=== PATIENT | female | born 1975 | race Caucasian/White ===

== ENCOUNTER 2017-02-14 00:24 | Inpatient (IN) | payer BC ==
[~2017-02-14 00:24] MED LIST: ALLEGRA ALLERG180 M1 PO; CENTRUM COMPLE1 EAC1 PO; ESTRADIOL1 EA12 TD; IBUPROFEN800 M1 PO; LASIX20 M1 PO; MEDS; MELATONIN10 M6 PO; MORPHINE SULFAT3010 PO; MS CONTIN15 M1 PO; NEURONTIN300 M1 PO; POTASSIUM CHLO20 ME3 PO; PROMETHAZINE12.5 M2 PO; REQUIP0.25 M1 PO; SEROQUEL25 M2 PO; XANAX1 M1 PO; ZANAFLEX4 M3 PO; ZOFRAN4 M2 PO; ZOFRAN8 M1 PO; ZOLOFT100 M1 PO
[2017-02-14 02:00] LABS: HCT-HEMATOCRIT 36.3 % (34.0-49.0); HGB-HEMOGLOBIN 11.9 gm/dl (12.0-15.5); IMMATURE GRANULOCYTES ABSOLUTE 0.01 tho/cmm (0-0.03); IMMATURE GRANULOCYTES PERCENT 0.4 % (0-0.3); LYMPH % 25.7 % (20-45); LYMPH ABSOLUTE COUNT 0.7 tho/cmm (0.8-4.5); MCH (MEAN CORPUSCULAR HGB) 26.7 pg (28.0-32.0); MCHC MEAN CORPUSCULAR HGB CONC 32.8 % (32.0-36.0); MCV (MEAN CELL VOLUME) 81.6 fl (82.0-96.0); MEAN PLATELET VOLUME 9.8 cmc (9.4-12.4); MONO % 9.1 % (0-12); MONOCYTE ABSOLUTE COUNT 0.3 tho/cmm (0.0-1.2); NEUTROPHIL ABSOLUTE COUNT 1.8 tho/cmm (1.6-8.0); NEUTROPHIL-AUTOMATED 1.8 tho/cmm (1.6-8.0); NEUTROPHILS % 64.8 % (40-80); PLATELET COUNT 137 tho/cmm (150-450); RED BLOOD COUNT 4.45 mil/cmm (4.00-5.20); RED CELL DISTRIBUTION WIDTH 16.4 % (12.4-16.4); WHITE BLOOD COUNT 2.8 tho/cmm (4.0-10.0)
[2017-02-14 02:23] LABS: ALB/GLOB RATIO 0.7 (0.8-2.0); ALBUMIN 2.5 g/dl (3.5-5.0); ALKALINE PHOSPHATASE 157 U/L (33-138); ALT/SGPT 40 U/L (12-78); AMYLASE 47 U/L (20-90); ANION GAP 12 mmol/L (0-20); AST/SGOT 20 U/L (10-40); BILIRUBIN,TOTAL 0.3 mg/dl (0-1.5); BLOOD UREA NITROGEN 9 mg/dl (6-24); CALCIUM 7.8 mg/dl (8.5-10.5); CARBON DIOXIDE-VENOUS 20 mmol/L (22-32); CHLORIDE 115 mmol/l (96-110); CREATININE 0.78 mg/dl (0.50-1.10); GLUCOSE 102 mg/dL (70-110); LIPASE 187 U/L (73-393); POTASSIUM 3.2 mmol/L (3.7-5.1); SODIUM 144 mmol/L (135-145); eGFR VALUE FOR BLACK >90 mL/Min
[2017-02-14] MEDS ORDERED: ZANAFLEX4 M2 PO (02:57)
[2017-02-14] MEDS ORDERED: NEURONTIN600 M1 PO (02:57)
[2017-02-14] MEDS ORDERED: MS CONTIN30 M1 PO (02:58)
[2017-02-14] MEDS ORDERED: XANAX1 M1 PO (03:00)
[2017-02-14] MEDS ORDERED: ZOLOFT100 M1 PO (03:02)
[2017-02-14] MEDS ORDERED: POTASSIUM CHLO20 ME3 PO (03:02)
[2017-02-14] MEDS ORDERED: ROPINIROLE HCL0.5 M1 PO (03:03)
[2017-02-14] MEDS ORDERED: PROMETHAZINE12.5 M2 PO (03:04)
[2017-02-14] MEDS ORDERED: LUNESTA2 M1 PO (03:05)
[2017-02-14] MEDS ORDERED: OMEPRAZOLE10 M2 PO (03:06)
[2017-02-14] MEDS ORDERED: LASIX20 M1 PO (03:20)
[2017-02-14] MEDS ORDERED: XYZAL5 M1 PO (03:21)
[2017-02-14] MEDS ORDERED: MORPHINE SU15 MG/TAB PO (03:27)
[2017-02-14 08:38] LABS: PROCALCITONIN 0.07 ng/ml (0.05-0.09)
[2017-02-14] MEDS ORDERED: MS CONTIN15 M1 PO (15:07)
[2017-02-14] MEDS ORDERED: IBUPROFEN200 M2 PO (15:11)
[2017-02-14] MEDS ORDERED: MUCINEX FAST-M1 EAC9 PO (15:11)
[2017-02-14] MEDS ORDERED: CALCIUM500 M4 PO (15:12)
[2017-02-14] MEDS ORDERED: VENTOLIN HFA18 G2 INH (15:13)
[2017-02-14] MEDS ORDERED: WOMEN'S MULTI200 MCG PO (15:13)
[2017-02-15 05:35] LABS: HCT-HEMATOCRIT 31.9 % (34.0-49.0); HGB-HEMOGLOBIN 10.5 gm/dl (12.0-15.5); LYMPH % 24.9 % (20-45); LYMPH ABSOLUTE COUNT 0.7 tho/cmm (0.8-4.5); MCH (MEAN CORPUSCULAR HGB) 26.7 pg (28.0-32.0); MCHC MEAN CORPUSCULAR HGB CONC 32.9 % (32.0-36.0); MCV (MEAN CELL VOLUME) 81.2 fl (82.0-96.0); MEAN PLATELET VOLUME 10.3 cmc (9.4-12.4); MONO % 7.8 % (0-12); MONOCYTE ABSOLUTE COUNT 0.2 tho/cmm (0.0-1.2); NEUTROPHILS % 67.3 % (40-80); PLATELET COUNT 122 tho/cmm (150-450); RED BLOOD COUNT 3.93 mil/cmm (4.00-5.20); RED CELL DISTRIBUTION WIDTH 16.6 % (12.4-16.4); WHITE BLOOD COUNT 2.9 tho/cmm (4.0-10.0)
[2017-02-15 05:44] LABS: ALB/GLOB RATIO 0.7 (0.8-2.0); ALBUMIN 2.5 g/dl (3.5-5.0); ALKALINE PHOSPHATASE 119 U/L (33-138); ALT/SGPT 26 U/L (12-78); AST/SGOT 15 U/L (10-40); BLOOD UREA NITROGEN 4 mg/dl (6-24); CALCIUM 7.9 mg/dl (8.5-10.5); CARBON DIOXIDE-VENOUS 19 mmol/L (22-32); CHLORIDE 114 mmol/l (96-110); CREATININE 0.81 mg/dl (0.50-1.10); GLUCOSE 106 mg/dL (70-110); MAGNESIUM 1.8 mg/dl (1.8-2.6); SODIUM 144 mmol/L (135-145); eGFR VALUE FOR BLACK >90 mL/Min
[2017-02-15 05:47] LABS: ANION GAP 14 mmol/L (0-20); BILIRUBIN,TOTAL 0.6 mg/dl (0-1.5)
[2017-02-15 05:49] LABS: POTASSIUM 2.8 mmol/L (3.7-5.1)
[2017-02-15 15:51] LABS: URINE BILIRUBIN NEGATIVE (NEG); URINE BLOOD NEGATIVE (NEG); URINE GLUCOSE (UA) NEGATIVE (NEG); URINE KETONE NEGATIVE (NEG); URINE LEUKOCYTE ESTERASE NEGATIVE (NEG); URINE NITRITE NEGATIVE (NEG); URINE PROTEIN MODERATE (NEG)
[2017-02-15 15:52] LABS: URINE APPEARANCE CLEAR; URINE COLOR YELLOW
[2017-02-15 15:58] LABS: URINE EPITHELIAL CELLS 0-1 /[HPF] (0-10); URINE RBC 0-3 /[HPF] (0-5); URINE WBC 0-1 /[HPF] (0-5)
[2017-02-16 06:20] LABS: HCT-HEMATOCRIT 30.3 % (34.0-49.0); HGB-HEMOGLOBIN 9.6 gm/dl (12.0-15.5); IMMATURE GRANULOCYTES ABSOLUTE 0.01 tho/cmm (0-0.03); IMMATURE GRANULOCYTES PERCENT 0.3 % (0-0.3); LYMPH % 25.9 % (20-45); LYMPH ABSOLUTE COUNT 0.8 tho/cmm (0.8-4.5); MCH (MEAN CORPUSCULAR HGB) 26.2 pg (28.0-32.0); MCHC MEAN CORPUSCULAR HGB CONC 31.7 % (32.0-36.0); MCV (MEAN CELL VOLUME) 82.6 fl (82.0-96.0); MEAN PLATELET VOLUME 9.7 cmc (9.4-12.4); MONO % 6.1 % (0-12); MONOCYTE ABSOLUTE COUNT 0.2 tho/cmm (0.0-1.2); NEUTROPHILS % 66.7 % (40-80); PLATELET COUNT 125 tho/cmm (150-450); RED BLOOD COUNT 3.67 mil/cmm (4.00-5.20); RED CELL DISTRIBUTION WIDTH 16.9 % (12.4-16.4)
[2017-02-16 06:27] LABS: ALB/GLOB RATIO 0.7 (0.8-2.0); ALBUMIN 2.6 g/dl (3.5-5.0); ALKALINE PHOSPHATASE 117 U/L (33-138); ALT/SGPT 27 U/L (12-78); ANION GAP 12 mmol/L (0-20); AST/SGOT 8 U/L (10-40); BILIRUBIN,TOTAL 0.3 mg/dl (0-1.5); BLOOD UREA NITROGEN 6 mg/dl (6-24); CALCIUM 8.2 mg/dl (8.5-10.5); CARBON DIOXIDE-VENOUS 19 mmol/L (22-32); CHLORIDE 118 mmol/l (96-110); CREATININE 0.74 mg/dl (0.50-1.10); FERRITIN 180 ng/ml (8-250); GLUCOSE 124 mg/dL (70-110); POTASSIUM 3.4 mmol/L (3.7-5.1); SODIUM 146 mmol/L (135-145); eGFR VALUE FOR BLACK >90 mL/Min
[2017-02-17 06:06] LABS: EOS % 3.2 % (0-7); EOSINOPHIL ABSOLUTE COUNT 0.1 tho/cmm (0.0-0.7); HCT-HEMATOCRIT 31.9 % (34.0-49.0); HGB-HEMOGLOBIN 10.1 gm/dl (12.0-15.5); LYMPH % 22.7 % (20-45); LYMPH ABSOLUTE COUNT 0.8 tho/cmm (0.8-4.5); MCH (MEAN CORPUSCULAR HGB) 26.4 pg (28.0-32.0); MCHC MEAN CORPUSCULAR HGB CONC 31.7 % (32.0-36.0); MCV (MEAN CELL VOLUME) 83.3 fl (82.0-96.0); MEAN PLATELET VOLUME 9.6 cmc (9.4-12.4); MONO % 5.3 % (0-12); MONOCYTE ABSOLUTE COUNT 0.2 tho/cmm (0.0-1.2); NEUTROPHIL ABSOLUTE COUNT 2.3 tho/cmm (1.6-8.0); NEUTROPHIL-AUTOMATED 2.3 tho/cmm (1.6-8.0); NEUTROPHILS % 68.8 % (40-80); PLATELET COUNT 137 tho/cmm (150-450); RED BLOOD COUNT 3.83 mil/cmm (4.00-5.20); RED CELL DISTRIBUTION WIDTH 17.3 % (12.4-16.4); WHITE BLOOD COUNT 3.4 tho/cmm (4.0-10.0)
[2017-02-17 06:22] LABS: ALB/GLOB RATIO 0.7 (0.8-2.0); ALBUMIN 2.6 g/dl (3.5-5.0); ALKALINE PHOSPHATASE 118 U/L (33-138); ALT/SGPT 22 U/L (12-78); ANION GAP 13 mmol/L (0-20); AST/SGOT 11 U/L (10-40); BILIRUBIN,TOTAL 0.4 mg/dl (0-1.5); BLOOD UREA NITROGEN 5 mg/dl (6-24); CALCIUM 8.5 mg/dl (8.5-10.5); CARBON DIOXIDE-VENOUS 22 mmol/L (22-32); CHLORIDE 116 mmol/l (96-110); CREATININE 0.88 mg/dl (0.50-1.10); GLUCOSE 79 mg/dL (70-110); SODIUM 146 mmol/L (135-145); eGFR VALUE FOR BLACK >90 mL/Min
[2017-02-17 06:24] LABS: POTASSIUM 4.7 mmol/L (3.7-5.1)
[2017-02-17 07:21] LABS: ESR-ERYTHROCYTE SED RATE 95 mm/hr (0-20)
[2017-02-17 12:24] LABS: BAL APPEARANCE HAZY (CLEAR)
[2017-02-17 12:25] LABS: BAL COLOR STRAW (COLORLESS)
[2017-02-17 14:07] LABS: BAL LYMPHOCYTES 3 %; BAL NEUTROPHILS 40 %
[2017-02-18 06:12] LABS: HCT-HEMATOCRIT 33.2 % (34.0-49.0); HGB-HEMOGLOBIN 10.8 gm/dl (12.0-15.5); IMMATURE GRANULOCYTES ABSOLUTE 0.01 tho/cmm (0-0.03); IMMATURE GRANULOCYTES PERCENT 0.3 % (0-0.3); LYMPH % 14.1 % (20-45); LYMPH ABSOLUTE COUNT 0.4 tho/cmm (0.8-4.5); MCH (MEAN CORPUSCULAR HGB) 26.3 pg (28.0-32.0); MCHC MEAN CORPUSCULAR HGB CONC 32.5 % (32.0-36.0); MCV (MEAN CELL VOLUME) 80.8 fl (82.0-96.0); MEAN PLATELET VOLUME 9.2 cmc (9.4-12.4); MONO % 2.9 % (0-12); MONOCYTE ABSOLUTE COUNT 0.1 tho/cmm (0.0-1.2); NEUTROPHIL ABSOLUTE COUNT 2.6 tho/cmm (1.6-8.0); NEUTROPHIL-AUTOMATED 2.6 tho/cmm (1.6-8.0); NEUTROPHILS % 82.7 % (40-80); PLATELET COUNT 162 tho/cmm (150-450); RED BLOOD COUNT 4.11 mil/cmm (4.00-5.20); RED CELL DISTRIBUTION WIDTH 16.7 % (12.4-16.4); WHITE BLOOD COUNT 3.1 tho/cmm (4.0-10.0)
[2017-02-18 06:28] LABS: BLOOD UREA NITROGEN 10 mg/dl (6-24); CALCIUM 8.7 mg/dl (8.5-10.5); CARBON DIOXIDE-VENOUS 22 mmol/L (22-32); CHLORIDE 110 mmol/l (96-110); CREATININE 0.71 mg/dl (0.50-1.10); SODIUM 141 mmol/L (135-145); eGFR VALUE FOR BLACK >90 mL/Min
[2017-02-18 06:33] LABS: ANION GAP 13 mmol/L (0-20); GLUCOSE 163 mg/dL (70-110); POTASSIUM 3.7 mmol/L (3.7-5.1)
[2017-02-19 05:17] LABS: HCT-HEMATOCRIT 33.4 % (34.0-49.0); HGB-HEMOGLOBIN 10.7 gm/dl (12.0-15.5); IMMATURE GRANULOCYTES ABSOLUTE 0.01 tho/cmm (0-0.03); IMMATURE GRANULOCYTES PERCENT 0.2 % (0-0.3); LYMPH % 9.1 % (20-45); LYMPH ABSOLUTE COUNT 0.4 tho/cmm (0.8-4.5); MCH (MEAN CORPUSCULAR HGB) 26.3 pg (28.0-32.0); MCV (MEAN CELL VOLUME) 82.1 fl (82.0-96.0); MEAN PLATELET VOLUME 9.5 cmc (9.4-12.4); MONO % 1.6 % (0-12); MONOCYTE ABSOLUTE COUNT 0.1 tho/cmm (0.0-1.2); NEUTROPHIL ABSOLUTE COUNT 3.8 tho/cmm (1.6-8.0); NEUTROPHIL-AUTOMATED 3.8 tho/cmm (1.6-8.0); NEUTROPHILS % 89.1 % (40-80); PLATELET COUNT 173 tho/cmm (150-450); RED BLOOD COUNT 4.07 mil/cmm (4.00-5.20); RED CELL DISTRIBUTION WIDTH 16.8 % (12.4-16.4); WHITE BLOOD COUNT 4.3 tho/cmm (4.0-10.0)
[2017-02-19 05:36] LABS: ALB/GLOB RATIO 0.7 (0.8-2.0); ALBUMIN 2.9 g/dl (3.5-5.0); ALKALINE PHOSPHATASE 114 U/L (33-138); ALT/SGPT 20 U/L (12-78); ANION GAP 14 mmol/L (0-20); AST/SGOT 9 U/L (10-40); BILIRUBIN,TOTAL 0.2 mg/dl (0-1.5); BLOOD UREA NITROGEN 13 mg/dl (6-24); CARBON DIOXIDE-VENOUS 27 mmol/L (22-32); CHLORIDE 107 mmol/l (96-110); CREATININE 0.92 mg/dl (0.50-1.10); GLUCOSE 143 mg/dL (70-110); SODIUM 144 mmol/L (135-145); eGFR VALUE FOR BLACK 90 mL/Min
[2017-02-20] MEDS ORDERED: IPRATROPIU0.2 MG/1 M INH (12:35)
[2017-02-20] MEDS ORDERED: MAALOX MAXIMUM355 M1 PO (12:36)
[2017-02-20] MEDS ORDERED: BISCOLAX10 MG PR (12:37)
[2017-02-20] MEDS ORDERED: MILK OF MAGNESIA PO (12:37)
[2017-02-20] MEDS ORDERED: CEFTIN250 MG/51 PO (12:38)
[2017-02-20] MEDS ORDERED: DELTASONE20 MG PO (12:39)
[2017-02-20] MEDS ORDERED: SYMBICORT 160-1 PUFF INH (12:40)
[2017-05-27] MEDS ORDERED: XANAX1 M1 PO (18:12)
[2017-05-27] MEDS ORDERED: ZITHROMAX500 M2 PO (18:12)
[2017-05-27] MEDS ORDERED: RIFADIN300 M1 PO (18:13)
[2017-05-27] MEDS ORDERED: MYAMBUTOL400 M2 PO (18:13)
[2017-05-30] MEDS ORDERED: XIFAXAN550 M1 PO (14:05)
[2017-05-30] MEDS ORDERED: [UNRECOGNIZED DRUG - REMARK] (14:15)
[2017-06-11] MEDS ORDERED: CYMBALTA30 M1 PO (13:39)
[2017-06-11] MEDS ORDERED: TRULANCE3 MG PO (13:40)
[2017-06-11] MEDS ORDERED: MORPHINE SU15 MG/TAB PO (13:50)
== END 2017-02-20 13:20 | DRG 853 ==
LOC: PCUB 00:24
PROVIDERS: Internal Medicine; Internal Medicine Critical Care Medicine; Registered Nurse; ADMIT Hospitalist
PROC: 3E0F7GC Introduction of Other Therapeutic Substance into Respiratory Tract, Via Natural or Artificial Opening (ICD-10-PCS; 2017-02-14)
PROC: 05HC33Z Insertion of Infusion Device into Left Basilic Vein, Percutaneous Approach (ICD-10-PCS; principal; 2017-02-15)
PROC: B54NZZA Ultrasonography of Left Upper Extremity Veins, Guidance (ICD-10-PCS; principal; 2017-02-15)
PROC: 0BBC8ZX Excision of Right Upper Lung Lobe, Via Natural or Artificial Opening Endoscopic, Diagnostic (ICD-10-PCS; 2017-02-17)
PROC: 0BB68ZX Excision of Right Lower Lobe Bronchus, Via Natural or Artificial Opening Endoscopic, Diagnostic (ICD-10-PCS; 2017-02-17)
PROC: 0B9F8ZX Drainage of Right Lower Lung Lobe, Via Natural or Artificial Opening Endoscopic, Diagnostic (ICD-10-PCS; 2017-02-17)
PROC: 0BB18ZX Excision of Trachea, Via Natural or Artificial Opening Endoscopic, Diagnostic (ICD-10-PCS; 2017-02-17)
DX: A41.9 Sepsis, unspecified organism (principal); J96.21 Acute and chronic respiratory failure with hypoxia; D61.818 Other pancytopenia; J84.9 Interstitial pulmonary disease, unspecified; I27.2 Other secondary pulmonary hypertension; I95.9 Hypotension, unspecified; K56.7 Ileus, unspecified; E87.6 Hypokalemia; G62.9 Polyneuropathy, unspecified; K58.9 Irritable bowel syndrome, unspecified; K73.9 Chronic hepatitis, unspecified; F17.210 Nicotine dependence, cigarettes, uncomplicated; R91.8 Other nonspecific abnormal finding of lung field; Z79.891 Long term (current) use of opiate analgesic; I99.8 Other disorder of circulatory system
CPT/HCPCS: C1751; C9113; J0171; J0696; J1940; J2405; J2543; J2920; J3370; J3480; J7030; J7512; P9045